=== PATIENT | female | born 1985 | race Caucasian/White ===

== ENCOUNTER → 2022-09-17 11:03 | Outpatient (CLI) | payer OTHER, SELFPAY ==
--- NOTE | 2022-09-17 | DI.US.S_ITS ---
PROCEDURE: US OB <= 14 WEEKS FETUS INDICATIONS: EVAL CARDIAC ACTIVITY OUTSIDE/PRIOR DATING DATA: Last menstrual period (LMP): 07/06/2022. LMP-based estimated date of delivery (INGA): 04/12/2023. First dating scan (date and location): 09/17/2020. TECHNIQUE: Real-time scanning was performed of the fetus and maternal pelvic organs, with image documentation. Endovaginal scanning was also performed to better visualize the fetus and maternal ovaries. COMPARISON: None. FINDINGS: There is a gestational sac in the uterine fundus containing a fetus with a crown-rump length of 2.6 centimeters, which would be consistent with a gestational age of 9 weeks 3 days however there is no heart rate consistent with intrauterine demise. No yolk sac identified. Maternal organs: Ovaries normal. IMPRESSION: Intrauterine demise. We strive to produce accurate, complete, and clear reports of imaging services. To assist us in improving patient care, this report was composed using standard report templates and voice recognition software. Therefore, it may contain abnormal punctuation, insertions and/or omissions. Occasional wrong-word or sound-alike substitutions may occur. Though we review the report and make efforts to correct it, we do recommend that the report be read carefully in proper context to recognize any text inaccuracies. Dictated by: Merlin Bowen M.D. on 09/17/2022 at 13:52 Approved by: Merlin Bowen M.D. on 09/17/2022 at 13:55
== END ==
PROVIDERS: Referring Provider Nurse Practitioner Obstetrics & Gynecology; Visit Provider Nurse Practitioner Obstetrics & Gynecology
DX: O02.1 Missed abortion (principal)
CPT/HCPCS: 76801; 76817

== ENCOUNTER → 2023-12-21 15:45 | Outpatient (CLI) | payer OTHER, SELFPAY ==
--- NOTE | 2023-12-21 | DI.US.S_ITS ---
PROCEDURE: US OB <= 14 WEEKS FETUS INDICATIONS: SPOTTING OUTSIDE/PRIOR DATING DATA: Last menstrual period (LMP): 11/06/2023. LMP-based estimated date of delivery (INGA): 08/12/2024. First dating scan (date and location): 12/22/2023. Estimated date of delivery (INGA) from first dating scan: 08/06/2024. The calculations are made using the working INGA of 08/06/2024. TECHNIQUE: Real-time scanning was performed of the fetus and maternal pelvic organs, with image documentation. Endovaginal scanning was also performed to better visualize the fetus and maternal ovaries. COMPARISON: Merged With [facility], , OB <= 14 WEEKS FETUS, 09/17/2022, 11:31. FINDINGS: Embryo: [place]-rump length 1.1 cm corresponds with 7 week 2 day gestation. Small perigestational bleed measures 2.0 x 1.1 x 0.3 cm. Heart rate: 141 Maternal organs: Right ovarian corpus luteum cyst IMPRESSION: Single live intrauterine corresponds with 7 week 2 day gestation Approved by: Jonathan Lynne M.D. on 12/22/2023 at 18:39
== END ==
PROVIDERS: PCP Family Medicine; Referring Provider Nurse Practitioner Obstetrics & Gynecology; Visit Provider Nurse Practitioner Obstetrics & Gynecology
DX: O26.851 Spotting complicating pregnancy, first trimester (principal); Z3A.01 Less than 8 weeks gestation of pregnancy
CPT/HCPCS: 76801; 76817

== ENCOUNTER → 2024-03-22 14:07 | Outpatient (CLI) | payer OTHER, SELFPAY ==
--- NOTE | 2024-03-22 | DI.US.S_ITS ---
PROCEDURE: US OB >= 14 WEEKS FETUS INDICATIONS: ANATOMY SCAN OUTSIDE/PRIOR DATING DATA: Last menstrual period (LMP): 11/06/2023. LMP-based estimated date of delivery (INGA): 08/12/2024. First dating scan (date and location): 1232 Estimated date of delivery (INGA) from first dating scan: 08/06/2024. The calculations are made using the working INGA of 08/06/2024. TECHNIQUE: Real-time scanning was performed of the fetus, with image documentation and biometric measurements. Endovaginal scanning: Not performed COMPARISON: [facility], OB <= 14 WEEKS FETUS, 12/21/2023, 16:25. FINDINGS: General: A single living intrauterine gestation is present. Presentation: Vertex Placenta: Placental position is anterior, without previa. Amniotic fluid index: 16.2 cm, normal range is 5-24 cm. Single deepest vertical pocket is 6.3 cm. heart rate: 128 beats per minute. Maternal cervical canal: 3.2 cm long. Normal lower limit is 2.5 cm. biometrics: Biparietal diameter: 4.9 cm, 21 weeks, 0 day Head circumference: 17.7 cm, 20 weeks, 1 day Abdominal circumference: 15.6 cm, 20 weeks, 6 days Femur length: 3.6 cm, 21 weeks, 3 days Clinically estimated gestational age: 20 weeks, 3 days Composite gestational age from present scan: 20 weeks, 6 days Estimated weight and percentile: 390 grams, 75 percent. Anatomic survey: Neuro: Ventricles are non-dilated at less than 10 mm. Cisterna magna is normal at 3-11 mm. Cerebellum is normal in size and morphology. Nuchal skin fold: Normal at less than 6 mm between 14-21 weeks gestational age. Face: Nose and lips, facial profile are normal. Spine: No evidence for spina bifida. Heart: 4-chambered heart is present, with normal ventricular outflow tracts. Diaphragm: Diaphragm is intact. Stomach: Left-sided stomach is present. Kidneys: No hydronephrosis. Normal is less than 5 mm in 2nd trimester, less than 7 mm in 3rd trimester. Cord: 3-vessel cord has orthotopic insertion. Bladder: Normal in size. Extremities: All 4 extremities identified. IMPRESSION: 1. Single live intrauterine gestation with fetus in vertex presentation. heart rate is 128 beats per minute. Normal LEEROY at 16.2 cm. Estimated weight is at 75 percent. 2. Normal anatomic survey. We strive to produce accurate, complete, and clear reports of imaging services. To assist us in improving patient care, this report was composed using standard report templates and voice recognition software. Therefore, it may contain abnormal punctuation, insertions and/or omissions. Occasional wrong-word or sound-alike substitutions may occur. Though we review the report and make efforts to correct it, we do recommend that the report be read carefully in proper context to recognize any text inaccuracies. Dictated by: Brian Farley M.D. on 03/22/2024 at 17:26 Approved by: Brian Farley M.D. on 03/22/2024 at 17:29
== END ==
PROVIDERS: PCP Family Medicine; Referring Provider Nurse Practitioner Obstetrics & Gynecology; Visit Provider Nurse Practitioner Obstetrics & Gynecology
DX: Z34.92 Encounter for supervision of normal pregnancy, unspecified, second trimester (principal); Z3A.20 20 weeks gestation of pregnancy
CPT/HCPCS: 76811

== ENCOUNTER → 2024-08-02 12:32 | Outpatient (CLI) | payer OTHER, SELFPAY ==
--- NOTE | 2024-08-02 12:33 | DI.US.S_ITS ---
PROCEDURE: US OB LIMITED INDICATIONS: EFW; CORD DOPPLER OUTSIDE/PRIOR DATING DATA: The calculations are made using the working INGA of 08/06/2024. TECHNIQUE: Real-time scanning was performed of the fetus, with image documentation and biometric measurements. Endovaginal scanning: No COMPARISON: None. FINDINGS: General: A single living intrauterine gestation is present. Presentation: Vertex. Placenta: Placental position is anterior , without previa. Amniotic fluid index: 10.0 cm, normal range is 5-24 cm. Single deepest vertical pocket is 4.3 cm. heart rate: 157 beats per minute. Maternal cervical canal: Nonvisualized biometrics: Biparietal diameter: 9.4 cm, 38 week 2 day Head circumference: 33.7 cm, 38 week 5 day Abdominal circumference: 34.1 cm, 38 week 0 day Femur length: 7.7 cm, 39 week 2 day Clinically estimated gestational age: 39 week 3 day Composite gestational age from present scan: 38 week 4 day Estimated weight and percentile: 3489 g, 48 percentile Other: Cord Dopplers 2.4, 2.9, 1.9 IMPRESSION: Single live intrauterine consistent with 38 week 4 day gestation by current ultrasound Approved by: Jonathan Lynne M.D. on 08/02/2024 at 17:21
== END ==
PROVIDERS: PCP Family Medicine; Referring Provider Advanced Practice Midwife; Visit Provider Advanced Practice Midwife
DX: O26.843 Uterine size-date discrepancy, third trimester (principal); Z3A.38 38 weeks gestation of pregnancy
CPT/HCPCS: 76815; 76820

== ENCOUNTER 2024-08-09 03:42 | Outpatient (CLI) | payer OTHER, SELFPAY ==
--- NOTE | 2024-08-09 04:20 | PM.OBTRLD ---
Visit Information Visit Information Date of evaluation: 08/09/24 Primary OB Provider: Belen Gan On-call OB Provider: Belen Gan Reason for Evaluation: Yes rupture of membranes Comments/Additional reasons for admission: [id number] @ 40wks 3days by 7wk US presents for evlauation of ROM. Noticed clear fluid leaking at 0200 his morning. Feeling occasional, mild contractions and lots of FM. Small vaginal bleeding with leaking fluid. Uncomplicated care with CNMs. Desires low intervention . is present and supportive. 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 Mother Osteoporosis Social History (Updated 08/09/24 @ 04:26 by Belen Gan CNM) marital status: household members: spouse lives independently: Yes housing: house education level: college Review of Systems Review of Systems ROS: Yes All systems reviewed with the patient and are negative except as otherwise documented Exam Vital Signs (past 8 hours): see above Presentation: vertex Amniotic Fluid: clear Evaluation Evaluation Baseline heart rate: 120 Variability: Moderate (11-25) monitor accelerations: Present Monitor Decelerations: Early Contraction Frequency (minutes): 2 Uterine Contraction Intensity: Mild Category of Tracing: Reactive Non-invasive Membranes Rupture Test: positive Comments: CE deferred Diagnosis, Plan/Disposition Final Diagnosis (1) PROM (premature rupture of membranes): Status: Acute Plan/Disposition Plan: Counseled on options for active vs expectant management of PROM with discussion of risks and benefits of each. Radha elects expectant management. Encouraged her to call and return when contractions are strong and regular. reviewed warning sx: decreased FM, vaginal bleeding, green/brown leaking fluid. Strong recommendation to return in 18-24 hours from time of PROM if no labor progression.
== END 2024-08-09 04:20 | disposition home or self-care (01) ==
LOC: OB 08-12 15:35
PROVIDERS: PCP Family Medicine; Referring Provider Nurse Practitioner Obstetrics & Gynecology; Visit Provider Nurse Practitioner Obstetrics & Gynecology
DX: O42.92 Full-term premature rupture of membranes, unspecified as to length of time between rupture and onset of labor (principal); Z3A.40 40 weeks gestation of pregnancy
CPT/HCPCS: 59025; 84112; G0378; G0379

== ENCOUNTER 2024-08-09 12:10 | Inpatient (IN) | payer OTHER, SELFPAY ==
--- NOTE | 2024-08-09 12:37 | P.HPOB_ITS ---
OB HPI Date/Time Date of admission: 08/09/24 Date Patient Seen: 08/09/24 Time Patient Seen: 12:22 History of Present Condition Chief complaint: LABOR : 2 Para: 0 Estimated Date of Delivery: 08/06/24 Estimated Gestational Age (weeks): 40.3 Narrative: Radha Light is a 39 year old female @ [id number] by 7wk US presents for labor admission. Was seen in triage this morning after PROM at 0200 for clear fluid. PROM was confirmed by [employer], NST was reactive and Radha chose expectant management of PROM after counseling on options. Haley mildly at that time. Contractions continued to increase in frequency and intensity, now strong and regular, Q 2-3 minutes. Continues to leak clear fluid and has noticed scant bleeding. Uncomplicated care with CNMs. Desires low intervention . , Jorje, is supportive at her side. History of Present care: good care, initiated at week # (10), number of visits (11) and pounds weight gain (38) Dating criteria: based on 1st trimester US only Ultrasounds: normal 1st trimester US, normal mid trimester US and other (39wk growth US 3489grams (48th%)) Obstetrical complications: none Medical complications: none Preadmission Labs Blood type: A (+) positive -: Antibody screen: negative, GBS status: negative, HBsAG: negative, HIV: negative and RPR/VDLR: negative -: Chlamydia screen: not detected and Gonorrhea screen: not detected -: Rubella: immune and Varicella: immune HCT: 38.5 HCAB: reactive PAP: Abnormal (ASCUS) Cell-free DNA: Negative, XY 1 hr GTT: 135 Prior (ies) History: SAB x1 Evaluation Evaluation Baseline heart rate: 130 Variability: Moderate (11-25) monitor accelerations: Present Monitor Decelerations: Absent Contraction Frequency (minutes): 2 Uterine Contraction Intensity: Strong/Firm Status: Category l Dilation (cm): 5 Effacement (%): 90 station: -1 Position of cervix: posterior Consistency: soft [facility] Medical History 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 Mother Osteoporosis Social History marital status: household members: spouse lives independently: Yes housing: house education level: college Meds Home Medications and Allergies Home Medications Medication Instructions Recorded Confirmed Type aspirin 81 mg tablet,delayed 81 mg PO DAILY 03/01/24 03/01/24 History release vitamins no.119-iron tab PO DAILY 03/01/24 03/01/24 History fumarate 29 mg-folic acid 1 mg tablet Allergies Allergy/AdvReac Type Severity Reaction Status Date / Time No Known Drug Allergies Allergy Unverified 03/01/24 14:28 Review of Systems Review of Systems ROS: Yes All systems reviewed with the patient and are negative except as otherwise documented OB Exam Vital signs Blood Pressure: 116/78 Pulse Rate: 93 Temperature: 98.1 F Resp Effort & Inspection: normal respiratory effort and able to speak in complete sentences Auscultation: clear to auscultation bilaterally Cardio Rate: regular rate Rhythm: regular rhythm Presentation: vertex Objective Labs 08/09/24 12:30 Assessment and Plan Assessment and Plan Assessment and Plan narrative: A: Term [place] Active labor SROM x 11 hours without sx of infection Antibioitcs not indicated Cat I FHR P: Admit, routine orders. Expectant management of labor. Labor support PRN. Reassess in 4 hours or sooner, PRN. Time-Based Coding :: [TOTAL MINUTES] spent with patient and on the chart (including review of chart, obtaining history, exam, reviewing outside data, placing orders, documenting exam and treatment plan, and counseling patient) on [DATE].
[2024-08-09 12:51] LABS: Add Manual Diff / Slide Review NO; Basophils Absolute Auto 100 /uL (0-100); Basophils Percent Auto 0.8 % (0-2); Eosinophils Absolute Auto 100 /uL (0-450); Eosinophils Percent Auto 0.7 % (2-4); Hematocrit 39.5 % (36-46); Hemoglobin 13.9 g/dL (12.0-16.0); Lymphocytes Absolute Auto 1500 /uL (1100-4500); Lymphocytes Percent Auto 10.3 % (25-40); Mean Corpuscular HGB Conc 35.3 % (30-36); Mean Corpuscular Hemoglobin 33.5 PG (26-34); Mean Corpuscular Volume 94.9 fL (80-100); Monocytes Absolute Auto 800 /uL (0-900); Monocytes Percent Auto 5.6 % (3-14); Neutrophils Absolute Auto 12400 /uL (1500-7000); Neutrophils Percent Auto 82.6 % (50-75); Platelet Count 233 X10^3/uL (150-400); Red Blood Cell Count 4.16 X10^6/uL (4.0-5.2); Red Cell Distribution Width 13.5 % (11.6-14.8)
[2024-08-09 13:25] VITALS: BP 116/78; PULSE 93; TEMP 36.7
[2024-08-09 14:00] VITALS: BP 116/78
[2024-08-09] MEDS: CALCIUM CARBONATE 500 MG TAB 1000 MG PO (14:44)
--- NOTE | 2024-08-09 16:35 | PM.OBPNLAB ---
Date/Time Date Patient Seen: 08/09/24 Time Patient Seen: 16:35 Pain Control Pain control: tolerating well Comments: Labored well in the room, mostly on hands and knees with a CUB. Moved to the tub around 1605 where she has found some good relief. Emesis episode and skaking recently. Scant bloody show visible in tub. CNM providing continuous labor support. VS: BP 100/70, HR 71, T 98.2F Oral Pelvic Exam Dilation (cm): 9 Effacement (%): 100 station: 0 Amniotic membrane status: Leaking Contractions Monitor mode: Palpation Contraction frequency (min): 3 Contraction duration (min): 1 Contraction pattern: Regular Contraction intensity: Strong/Firm Status Heart Rate Baseline: 135 Comments: reassuring by intermittent auscultation Assessment and Plan Assessment: active labor Plan: continuous present management Comments: Continue expectant management and continuous labor support. Anticipate second stage soon.
[2024-08-09] MEDS: LACTATED RINGERS 1,000 ML 100 ML IV ×2 (19:05→20:40)
--- NOTE | 2024-08-09 19:30 | PM.OBPNLAB ---
Date/Time Date Patient Seen: 08/09/24 Time Patient Seen: 19:30 Pain Control Pain control: other (Used NO2 for a few minutes) Comments: Radha began to feel the spontaneous urge to push, was assisted out of the tub and continuous EFM was initiated for decrease in FHR auscultated on intermittent auscultation. The urge to push went away for a while and then returned at 181 and she was presumed complete. She pushed spontaneously and was feeling her baby move lower in her pelvis. Increasing bloody show was noted with no external signs of descent. CE was performed at 185 and anterior lip palpated swollen and mushy with malpresentation to OP. This was explained to Lynne and she was assisted into knee chest position, then left exaggerated side lying. A prolonged FHR deceleration occurred with pilar to 70 began at 191. Did not resolved with multiple position changes and IV fluid bolus or O2 (10L by NRB carmen). OB back-up was called in along with anesthesia and terbutaline was administered at 4 minutes into the deceleration. The FHR improved, returning to baseline by 1916. was called off upon her arrival on the unit. Anesthesia was consulted for an epidural. VS: BP 110/71, HR 75, T 98.8F Oral, SpO2 100% Pelvic Exam Dilation (cm): 9.5 Effacement (%): 100 station: 0 Amniotic membrane status: Leaking Contractions Monitor mode: Palpation Contraction frequency (min): 3 Contraction pattern: Regular Contraction intensity: Strong/Firm Status status: Category ll Heart Rate Baseline: 135 Monitor Accelerations: Present Monitor Decelerations: Prolonged (described above) Monitor Variability: Moderate Assessment and Plan Assessment: active labor Comments: Repeat CE once comfortable. Frequent position changes with a peanut ball. Reassess in 2 hours or sooner, PRN.
[2024-08-09] MEDS: diphenhydrAMINE 50 MG/ML VIAL 25 MG IV (20:29)
[2024-08-09] MEDS: FENT 2MCG/ML BUPIV 0.125% EPI 200 MCG/100 ML PLAST..BAG 10 MCG EPIDURAL (21:00)
--- NOTE | 2024-08-09 21:27 | PM.AN.REGBLK ---
Regional Block Pre-procedure Procedure: Continuous Lumbar Epidural for L&D ASA Class: II Labs: Hct 39.5 % (36-46) 08/09/24 12:30 Plt Count 233 X10^3/uL (150-400) 08/09/24 12:30 Medications: Current Medications Generic Name Dose Route Start Last Admin Trade Name Freq PRN Reason Stop Dose Admin Calcium Carbonate 1,000 mg 08/09/24 12:35 08/09/24 14:44 Calcium Carbonate 500 Mg Tab PO 1,000 mg Q2HR PRN Administration Dyspepsia Carboprost Tromethamine 250 mcg 08/09/24 12:35 Carboprost 250 Mcg/Ml Ampul IM Q90M PRN Bleeding Diphenhydramine HCl 25 mg 08/09/24 20:27 08/09/24 20:29 Diphenhydramine 50 Mg/Ml Vial IV 25 mg Q10M PRN Administration Pruritis Ephedrine Sulfate 10 mg 08/09/24 20:27 Ephedrine 50 Mg/Ml Vial IV Q5M PRN Blood pressure decrease more than 20% of baseline. Fentanyl 100 mcg 08/09/24 12:35 Fentanyl 100 Mcg/2 Ml Inj IV Q1H PRN Pain, Severe (7-10) Oxytocin/Lactated Ringer's 30 unit in 500 mls @ 200 mls/hr 08/09/24 12:35 Oxytocin Premix IV CONT PRN Bleeding Protocol Tranexamic Acid 1,000 mg/ 100 mls @ 600 mls/hr 08/09/24 12:35 Sodium Chloride IV NOW PRN Bleeding Lactated Ringer's 1,000 mls @ 100 mls/hr 08/09/24 12:45 08/09/24 20:40 Lactated Ringers IV 08/09/24 22:44 100 mls/hr CONT JOSE Administration FENT 2MCG/ML BUPIV 0.125% EPI 200 mcg in 100 mls @ 10 mls/hr 08/09/24 20:30 08/09/24 21:00 Fentanyl/Bupiv/Ns 2mcg/Ml - 0.125% EPIDURAL 10 mls/hr CONT JOSE Administration Lidocaine HCl 20 ml 08/09/24 12:35 Lidocaine 1% 20 Ml INJ INTRA-OP PRN Post Delivery Methylergonovine Maleate 0.2 mg 08/09/24 12:35 Methylergonovine 0.2 Mg Tablet PO Q6HR PRN Heavy Bleeding Methylergonovine Maleate 0.2 mg 08/09/24 12:35 Methylergonovine 0.2 Mg/Ml Vial IM NOW PRN Bleeding Metoclopramide HCl 10 mg 08/09/24 20:27 Metoclopramide 10 Mg/2 Ml Inj IV 08/10/24 20:29 Q4H PRN Nausea Mineral Oil 30 ml 08/09/24 12:35 Mineral Oil 30 Ml Udc TOP PRN PRN Version Misoprostol 800 mcg 08/09/24 12:35 Misoprostol 200 Mcg Tablet ND NOW PRN Bleeding Misoprostol 400 mcg 08/09/24 12:35 Misoprostol 200 Mcg Tablet SL NOW PRN Bleeding Naloxone HCl 0.2 mg 08/09/24 12:35 Naloxone 0.4 Mg/Ml Vial IV Q2MIN PRN Opiate Reversal Naloxone HCl 0.4 mg 08/09/24 20:27 Naloxone 0.4 Mg/Ml Vial IV Q2MIN PRN Opiate Reversal Ondansetron HCl 4 mg 08/09/24 12:35 Ondansetron 4 Mg/2 Ml Inj IV Q4HR PRN Nausea And Vomiting Ondansetron HCl 4 mg 08/09/24 20:27 Ondansetron 4 Mg/2 Ml Inj IV 08/10/24 20:29 Q6HR PRN Nausea Oxytocin 10 unit 08/09/24 12:35 Oxytocin 10 Unit/Ml Vial IM NOW PRN Bleeding Allergies: Allergies Allergy/AdvReac Type Severity Reaction Status Date / Time No Known Drug Allergies Allergy Unverified 03/01/24 14:28 Procedure Insertion date: 08/09/24 Insertion time: 20:09 Prep/Local: betadine x3 and 1% lidocaine Interspace: L3-L4 Patient position: sitting Needle: 17 gauge Tuohy Loss of resistance with: saline NAHUM at (cm): 6 Catheter placed at SKIN (cm): 15 Catheter in SPACE (cm): 11 Initial Medications TEST DOSE time: 21:09 BOLUS DOSE time: 21:10 BOLUS DOSE (mL): 1 BOLUS DOSE med: other (Fentanyl 50mcg) Infusion INFUSION: 0.125% bupivacaine and with fentanyl 2 mcg/mL Initial rate (mL/hr): 10 Post-procedure Anesthesia date START: 08/09/24 Anesthesia time START: 19:59
[2024-08-09] MEDS: OXYTOCIN PREMIX 30 UNIT/500 ML PLAST..BAG IV (21:52)
--- NOTE | 2024-08-09 21:53 | PM.OBPNLAB ---
Date/Time Date Patient Seen: 08/09/24 Time Patient Seen: 21:53 Pain Control Pain control: epidural Comments: Radha is comfortable after epidural placement. Agreeable to labor augmentation at this time. VS: 111/66, HR 81bpm, T 37.0C Pelvic Exam Dilation (cm): 9 Effacement (%): 100 station: 0 Amniotic membrane status: Leaking Contractions Monitor mode: Palpation Contraction frequency (min): 4 Contraction duration (min): 1 Contraction pattern: Regular Contraction intensity: Strong/Firm Status status: Category l Heart Rate Baseline: 135 Monitor Accelerations: Present Monitor Decelerations: Absent Monitor Variability: Moderate Assessment and Plan Assessment: active labor Plan: begin patient augmentation Comments: Pitocin augmentation to adequate contractions. Position changes with peanut ball. Recheck in 2-3 hours. If no change, will place IUPC at that time.
[2024-08-10] MEDS: OXYTOCIN PREMIX 30 UNIT/500 ML PLAST..BAG 200 UNIT IV (01:27)
--- NOTE | 2024-08-10 02:31 | PM.OBPRVD ---
Labor & Delivery Delivery date: 08/10/24 Intrapartal Events: Bleeding, Abnormal Presentation and Deceleration Cervical ripening method: none Induction method: none Delivery augmentation: pitocin Delivery monitor: external FHT and external uterine Route of delivery: L&D Laceration Description: Labial (bilateral) Delivery repair: chromic (3.0) Quantitative Blood Loss: 200 Anesthesia Type: Epidural Narrative: Progressed to complete with pitocin augmentation (max dose 8mu/min). Three minute prolonged deceleration immediately prior to second stage, resolved with hands and knees positioning and pitocin decreased to 4mu/min. Radha was assisted back to recumbent positioning and pushed well with coaching and encouragement. NSVB of a vigorous baby boy in FRAN position. There was no nuchal cord and the shoulders delivered without additional maneuvers. [place] was lifted to maternal abdomen for drying and skin to skin. Remaining 30 units of pitocin in 500mL LR was increased to 300mL/hr for AMTSL. After cessation of pulsation, the cord was double clamped by CNM and cut by FOB. Cord blood hold sample was collected. Gentle cord traction and a singl maternal push led to spontaneous, Schultze delivery of an apparently intact placenta, membranes and 3VC. Fundus immediately firm and bleeding minimal. Perineum intact. Inspection of vagina revealed bilateral labial splits that were approximated with 3.0 chromic under adequate epidural anesthesia. QBL 200mL. Both mother and baby stable and skin to skin as I left the room. Baby 1: gender: Male Presentation: vertex Position: Left Occiput Anterior Placenta delivery description: Spontaneous Cord Vessel Description: 3 Vessels score (1 min): 8 score (5 min): 9 weight: 3.449 kg Plan for aftercare: Routine care
[2024-08-10] MEDS: KETOROLAC 30 MG/ML VIAL IM (03:52)
[2024-08-10] MEDS: ACETAMINOPHEN 325 MG TABLET 650 MG PO ×3 (09:16→22:19)
[2024-08-10] MEDS: DERMOPLAST SPRAY 20% 60 ML 1 SPRAY TOP (09:16)
[2024-08-10] MEDS: IBUPROFEN 600 MG TABLET PO ×2 (12:26→18:55)
[2024-08-11] MEDS: IBUPROFEN 600 MG TABLET PO ×2 (02:05→09:12)
[2024-08-11] MEDS: ACETAMINOPHEN 325 MG TABLET 650 MG PO (04:17)
[2024-08-11 09:08] LABS: Add Manual Diff / Slide Review NO; Basophils Absolute Auto 100 /uL (0-100); Basophils Percent Auto 0.8 % (0-2); Eosinophils Absolute Auto 200 /uL (0-450); Eosinophils Percent Auto 1.9 % (2-4); Hematocrit 33.8 % (36-46); Hemoglobin 11.8 g/dL (12.0-16.0); Lymphocytes Absolute Auto 1600 /uL (1100-4500); Lymphocytes Percent Auto 15.8 % (25-40); Mean Corpuscular Hemoglobin 33.5 PG (26-34); Mean Corpuscular Volume 95.8 fL (80-100); Monocytes Absolute Auto 900 /uL (0-900); Monocytes Percent Auto 8.4 % (3-14); Neutrophils Absolute Auto 7400 /uL (1500-7000); Neutrophils Percent Auto 73.1 % (50-75); Platelet Count 202 X10^3/uL (150-400); Red Blood Cell Count 3.53 X10^6/uL (4.0-5.2); Red Cell Distribution Width 13.8 % (11.6-14.8); White Blood Cell Count 10.2 X10^3/uL (4.5-11.0)
[2024-08-11] MEDS: DOCUSATE 100 MG CAPSULE 200 MG PO (09:11)
--- NOTE | 2024-08-11 09:45 | P.DS_ITS ---
Discharge Providers Provider Date of admission: 08/09/24 12:10 Discharge Date: 08/11/24 Primary care physician: Lawrence Lauren Consults: 08/09/24 19:43 Consult to Anesthesiology Routine Comment: Consulting Provider: Stephane Fernandez Reason for consultation: epidural requested Has provider been notified: Yes 08/11/24 02:00 Consult to [employer] Operator Routine Comment: Discharge provider: Belen Gan CNM Summary Hospital Course Date Patient Seen: 08/11/24 Time Patient Seen: 07:00 Diagnoses: O70 Hospital Course: Arrives to unit with spontaneous ROM and labor was augmented with Pitocin which lead to SNVB of single live infant. Two 1st degree labial tears repaired. Radha is voiding, walking, independently and using ibuprofen/acetaminophen with good pain control. Tolerating a general diet. Her bleeding is scant with small clots. She is having some difficulty getting baby to latch and would like to see again prior to discharge, otherwise feeling ready to go home. remains present and supportive and they have help at home. Peripartum Data Infant Delivery Method: Natural Vaginal Laceration Description: Labial Episiotomy description: None Procedures: O70 complications: none [place] 1: Gender: Male Disposition of : home Discharge Diagnosis (1) First degree perineal laceration during delivery: Status: Acute Status at Discharge Cognitive/behavioral status at discharge: oriented and calm Time Spent with Patient Time attestation: Total time spent providing and/or coordinating discharge services: Objective Labs 08/11/24 08:58 Labs: Laboratory Results - last 24 hr 08/11/24 08:58 WBC 10.2 RBC 3.53 L Hgb 11.8 L Hct 33.8 L MCV 95.8 MCH 33.5 MCHC 35.0 RDW 13.8 Plt Count 202 Neut % (Auto) 73.1 Lymph % (Auto) 15.8 L [place] % (Auto) 8.4 Eos % (Auto) 1.9 L Baso % (Auto) 0.8 Neut # (Auto) 7400 H Lymph # (Auto) 1600 [place] # (Auto) 900 Eos # (Auto) 200 Baso # (Auto) 100 Exam Vital Signs (past 8 hours): BP 109/73, HR 57, RR 14, SPO2 97% Const General: healthy appearing, comfortable and well groomed Nutritional Appearance: average body habitus and well nourished Other: Fundus firm at U -1, lochia is light, perineum is intact. Psych Appearance: grossly normal and well kempt Mental Status: mental status grossly normal Mood: congruent mood Affect: normal affect Judgment: judgment good Discharge Plan Discharge Plan Patient Disposition: Home Discharge orders & Medications Prescriptions: New ibuprofen 600 mg Tablet 600 mg PO Q6HR PRN (Reason: Pain, Mild (1-3)) 14 Days Qty: 60 0RF Continued PNV 119-iron fum-folic acid 29 mg iron- 1 mg tablet PO DAILY Discontinued aspirin 81 mg tablet,delayed release (DR/EC) 81 mg PO DAILY Follow up/Referrals: Lawrence Lauren [Primary Care Provider] - Belen Gan CNM [[employer]] - (2 week follow-up phone call Aug 22 @ 2pm 6 week follow-up office visit Sep 19 @ 1:15pm) Diet/Activity/Treatments Diet: Diet as Tolerated and Regular Activity: Bedrest x1 week, no heavy lifting x4 weeks, pelvic rest x6 weeks Skin/Wound/Dressing Care Report to your healthcare provider any signs of infection, such as:: chills, fever, increased pain, unusual drainage and unusual redness Visit Report/Discharge Packet Instructions: Depression Stand Alone Forms: Patient Portal/API, Stroke Signs & Symptoms Discharge Data Primary Care Provider: Lawrence Lauren
== END 2024-08-11 12:50 | disposition home or self-care (01) | DRG 807 ==
PROVIDERS: Admitting Provider Nurse Practitioner Obstetrics & Gynecology; PCP Family Medicine; Referring Provider Nurse Practitioner Obstetrics & Gynecology; Visit Provider Nurse Practitioner Obstetrics & Gynecology
DX: O76 Abnormality in fetal heart rate and rhythm complicating labor and delivery (principal); Z37.0 Single live birth; O70.0 First degree perineal laceration during delivery; Z3A.40 40 weeks gestation of pregnancy
CPT/HCPCS: 36415; 59025; 59050; 84112; 85025; 86850; 86900; 86901; G0378; G0379; J1200; J1885; J2590